=== PATIENT | male | born 1940 | race Caucasian/White ===

== ENCOUNTER 2019-05-08 09:18 | Day surgery (SDC) | payer MEDICARE ==
[~2019-05-08] VITALS: Ht 180.3 cm; Wt 83.8 kg
[~2019-05-08 09:18] MED LIST: HYDCHL12.5 PO; LISI20 PO
== END 2019-05-08 11:54 | disposition home or self-care (01) ==
LOC: ORSCSDS 09:18
PROVIDERS: Internal Medicine Gastroenterology
PROC: 0DBH8ZX Excision of Cecum, Via Natural or Artificial Opening Endoscopic, Diagnostic (ICD-10-PCS; principal; 2019-05-08 10:30)
PROC: 0DBL8ZX Excision of Transverse Colon, Via Natural or Artificial Opening Endoscopic, Diagnostic (ICD-10-PCS; principal; 2019-05-08 10:30)
DX: R19.4 Change in bowel habit (principal); D12.0 Benign neoplasm of cecum; D12.3 Benign neoplasm of transverse colon; K57.30 Diverticulosis of large intestine without perforation or abscess without bleeding; Z86.010 Personal history of colon polyps; I10 Essential (primary) hypertension; Z87.891 Personal history of nicotine dependence; Z79.899 Other long term (current) drug therapy
CPT/HCPCS: 88305; J2704; J7120

== ENCOUNTER 2020-10-06 14:11 | Emergency (ER) | payer MEDICARE ==
[~2020-10-06] VITALS: Ht 180.3 cm; Wt 86.2 kg
[2020-10-06 14:52] LABS: BASOPHILS ABSOLUTE AUTO 0.03 K/mm3 (0.00-0.23); BASOPHILS PERCENT AUTO 0 % (0-2); EOSINOPHILS ABSOLUTE AUTO 0.07 K/mm3 (0.00-0.68); EOSINOPHILS PERCENT AUTO 1 % (0-6); Hematocrit 45.6 % (37.0-53.0); Hemoglobin 15.3 g/dL (13.5-17.5); IMMATURE GRAN ABSOLUTE AUTO 0.01 K/mm3 (0.00-0.10); IMMATURE GRAN PERCENT AUTO 0 % (0-1); LYMPHOCYTES ABSOLUTE AUTO 1.89 K/mm3 (0.84-5.20); LYMPHOCYTES PERCENT AUTO 26 % (21-46); MONOCYTES ABSOLUTE AUTO 0.78 K/mm3 (0.16-1.47); MONOCYTES PERCENT AUTO 11 % (4-13); Mean Corpuscular HGB 30.3 pg (26.0-34.0); Mean Corpuscular HGB Conc 33.6 g/dL (31.5-36.5); Mean Corpuscular Volume 90 fL (80-100); Mean Platelet Volume 10.3 fL (9.1-12.4); NEUTROPHILS PERCENT AUTO 61 % (41-73); Platelet Count 222 K/mm3 (150-400); RDW Coefficient Variation 13.2 % (11.7-14.2); RDW Standard Deviation 44.1 fL (35.1-46.3); Red Blood Cell Count 5.05 M/mm3 (4.30-5.90); White Blood Cell Count 7.18 K/mm3 (4.00-11.30)
[2020-10-06] MEDS ORDERED: LISINOPRIL-HCT1 EACH PO (15:03)
[2020-10-06 15:05] LABS: International Normalized Ratio 1.04; Prothrombin Time Results 11.2 Sec (9.7-11.5)
[2020-10-06 15:08] LABS: Alanine Aminotransfer (ALT/SGP 26 U/L (12-78); Albumin, Blood 3.8 g/dL (3.4-5.0); Alk Phos 70 U/L (50-136); Anion Gap 5 mmol/L (6-16); Aspartate Aminotrans (AST/SGOT 19 U/L (12-37); Bilirubin, Total 0.5 mg/dL (0.1-1.0); Blood Urea Nitrogen 15 mg/dL (8-24); Bun/Creatinine Ratio 16.5 (12.0-20.0); CO2, Blood 27 mmol/L (21-32); Calcium, Blood 9.1 mg/dL (8.5-10.1); Chloride, Blood 104 mmol/L (98-108); Creatinine, Blood 0.91 mg/dL (0.60-1.20); Glomerular Filtration Rate >60 (60-); Glucose, Blood 97 mg/dL (70-99); Potassium, Blood 4.2 mmol/L (3.5-5.5); Sodium, Blood 136 mmol/L (136-145); Total Protein, Blood 7.8 g/dL (6.4-8.2)
[2020-10-06] MEDS ORDERED: CLOP75 PO (15:32)
== END 2020-10-06 15:40 | disposition home or self-care (01) ==
LOC: ER 14:11
PROVIDERS: Physician Assistant
DX: G45.9 Transient cerebral ischemic attack, unspecified (principal); I10 Essential (primary) hypertension; Z87.891 Personal history of nicotine dependence; Z88.0 Allergy status to penicillin; Z79.899 Other long term (current) drug therapy
CPT/HCPCS: 36415; 70450; 80053; 85025; 85610; 93005; 93010; 99285-25; A9270

== ENCOUNTER 2021-10-20 18:11 | Emergency (ER) | payer MEDICARE ==
[~2021-10-20] VITALS: Ht 180.3 cm; Wt 83.9 kg
[~2021-10-20 18:11] MED LIST changes: +CLOP75 PO; +LISINOPRIL-HCT1 EACH PO
[2021-10-20 18:50] LABS: BASOPHILS ABSOLUTE AUTO 0.02 K/mm3 (0.00-0.23); BASOPHILS PERCENT AUTO 0 % (0-2); EOSINOPHILS ABSOLUTE AUTO 0.07 K/mm3 (0.00-0.68); EOSINOPHILS PERCENT AUTO 1 % (0-6); Hematocrit 39.2 % (37.0-53.0); IMMATURE GRAN ABSOLUTE AUTO 0.01 K/mm3 (0.00-0.10); IMMATURE GRAN PERCENT AUTO 0 % (0-1); LYMPHOCYTES ABSOLUTE AUTO 1.82 K/mm3 (0.84-5.20); LYMPHOCYTES PERCENT AUTO 25 % (21-46); MONOCYTES ABSOLUTE AUTO 0.95 K/mm3 (0.16-1.47); MONOCYTES PERCENT AUTO 13 % (4-13); Mean Corpuscular HGB 30.1 pg (26.0-34.0); Mean Corpuscular HGB Conc 33.2 g/dL (31.5-36.5); Mean Corpuscular Volume 91 fL (80-100); Mean Platelet Volume 9.9 fL (9.1-12.4); NEUTROPHILS ABSOLUTE AUTO 4.56 K/mm3 (1.96-9.15); NEUTROPHILS PERCENT AUTO 61 % (41-73); Platelet Count 267 K/mm3 (150-400); RDW Coefficient Variation 13.1 % (11.7-14.2); RDW Standard Deviation 43.9 fL (35.1-46.3); Red Blood Cell Count 4.32 M/mm3 (4.30-5.90); White Blood Cell Count 7.43 K/mm3 (4.00-11.30)
[2021-10-20 19:13] LABS: Albumin, Blood 3.7 g/dL (3.4-5.0); Bilirubin, Total 0.4 mg/dL (0.1-1.0); Bun/Creatinine Ratio 18.7 (12.0-20.0); Calcium, Blood 9.1 mg/dL (8.5-10.1); Creatinine, Blood 1.07 mg/dL (0.60-1.20); Globulin, Blood 3.7 g/dL (2.2-4.0); Potassium, Blood 4.3 mmol/L (3.5-5.5); Total Protein, Blood 7.4 g/dL (6.4-8.2)
== END 2021-10-20 23:30 | disposition home or self-care (01) ==
LOC: ER 18:11
PROVIDERS: Emergency Medicine
DX: G45.9 Transient cerebral ischemic attack, unspecified (principal); I10 Essential (primary) hypertension; Z88.0 Allergy status to penicillin; Z79.899 Other long term (current) drug therapy; Z87.891 Personal history of nicotine dependence
CPT/HCPCS: 36415; 70450; 80053; 82947; 85025; 93005; 93010

== ENCOUNTER → 2022-04-14 | Outpatient (CLI) | payer MEDICARE ==
[2022-04-14 08:58] LABS: Source, Urine Clean Catch
[2022-04-14 10:13] LABS: Appearance, Urine Cloudy (Clear); Bilirubin, Urine Neg (Neg); Blood, Urine 5+ (Neg); Color, Urine Yellow (P-Yellow); Glucose Qualitative, Urine Neg (Neg); Ketones, Urine Neg (Neg); Leukocyte Esterase, Urine 3+ (Neg); Nitrite, Urine Pos (Neg); Protein, Urine 3+ (Neg); Urobilinogen, Urine NORM (Normal); pH, Urine 6.5 (5.0-8.0)
[2022-04-14 10:27] LABS: Bacteria Many /hpf; Squamous Epithelial Cells Not Seen /hpf (Few); White Blood Cells, Urine TNTC /hpf (0-5)
== END | disposition home or self-care (01) ==
LOC: LAB SHORT 08:57 → LAB 08:57
PROVIDERS: Internal Medicine
DX: R33.9 Retention of urine, unspecified (principal)
CPT/HCPCS: 81001; 87077; 87086; 87186

== ENCOUNTER 2022-04-23 06:09 | Emergency (ER) | payer MEDICARE ==
[~2022-04-23] VITALS: Ht 180.3 cm; Wt 79.4 kg
[2022-04-23 08:05] LABS: Source, Urine Foley catheter
[2022-04-23 08:15] LABS: Appearance, Urine Clear (Clear); Bilirubin, Urine Neg (Neg); Blood, Urine 5+ (Neg); Color, Urine Yellow (P-Yellow); Glucose Qualitative, Urine Neg (Neg); Ketones, Urine Neg (Neg); Leukocyte Esterase, Urine Neg (Neg); Nitrite, Urine Neg (Neg); Protein, Urine 3+ (Neg); Urobilinogen, Urine NORM (Normal)
[2022-04-23 08:55] LABS: Bacteria Rare /hpf; Squamous Epithelial Cells Not Seen /hpf (Few)
[2022-04-23 08:56] LABS: Hyaline Casts 0-2 /lpf (0-2)
== END 2022-04-23 09:30 | disposition home or self-care (01) ==
LOC: ER 06:09
PROVIDERS: Emergency Medicine
DX: N40.1 Benign prostatic hyperplasia with lower urinary tract symptoms (principal); N13.8 Other obstructive and reflux uropathy; R31.9 Hematuria, unspecified; N40.0 Benign prostatic hyperplasia without lower urinary tract symptoms; I10 Essential (primary) hypertension; Z87.891 Personal history of nicotine dependence; Z79.899 Other long term (current) drug therapy
CPT/HCPCS: 51702; 51798; 81001

== ENCOUNTER 2022-05-04 15:03 | Emergency (ER) | payer MEDICARE ==
[~2022-05-04] VITALS: Ht 180.3 cm; Wt 771.1 kg
[2022-05-04 17:44] LABS: Source, Urine Foley catheter
[2022-05-04 17:52] LABS: Appearance, Urine Clear (Clear); Bilirubin, Urine Neg (Neg); Blood, Urine Neg (Neg); Color, Urine Yellow (P-Yellow); Glucose Qualitative, Urine Neg (Neg); Ketones, Urine Neg (Neg); Leukocyte Esterase, Urine Neg (Neg); Nitrite, Urine Neg (Neg); Protein, Urine Neg (Neg); Urobilinogen, Urine NORM (Normal)
== END 2022-05-04 19:05 | disposition home or self-care (01) ==
LOC: ER 15:03
PROVIDERS: Student in an Organized Health Care Education/Training Program
DX: T83.021A Displacement of indwelling urethral catheter, initial encounter (principal); Y84.8 Other medical procedures as the cause of abnormal reaction of the patient, or of later complication, without mention of misadventure at the time of the procedure; I10 Essential (primary) hypertension; Z79.899 Other long term (current) drug therapy; Z88.0 Allergy status to penicillin; Z86.73 Personal history of transient ischemic attack (TIA), and cerebral infarction without residual deficits; Z87.891 Personal history of nicotine dependence
CPT/HCPCS: 51702; 51798; 81003

== ENCOUNTER → 2022-05-13 | Outpatient (CLI) | payer MEDICARE ==
[2022-05-13 11:08] LABS: Source, Urine Voided
[2022-05-13 13:13] LABS: Appearance, Urine Hazy (Clear); Bilirubin, Urine Neg (Neg); Blood, Urine 5+ (Neg); Color, Urine Yellow (P-Yellow); Glucose Qualitative, Urine Neg (Neg); Ketones, Urine Neg (Neg); Leukocyte Esterase, Urine 3+ (Neg); Nitrite, Urine Neg (Neg); Protein, Urine 3+ (Neg); Urobilinogen, Urine NORM (Normal)
[2022-05-13 13:27] LABS: White Blood Cells, Urine TNTC /hpf (0-5)
[2022-05-13 13:28] LABS: Bacteria Many /hpf
[2022-05-13 13:29] LABS: Granular Casts 0-2 /lpf (0); Squamous Epithelial Cells Not Seen /hpf (Few)
== END | disposition home or self-care (01) ==
LOC: LAB SHORT 11:07 → LAB 11:07
PROVIDERS: Internal Medicine
DX: R33.9 Retention of urine, unspecified (principal); R82.90 Unspecified abnormal findings in urine
CPT/HCPCS: 81001; 87077; 87086; 87186

== ENCOUNTER → 2022-07-28 | Outpatient (CLI) | payer OTHER ==
[~2022-07-28] MED LIST changes: +ATOR40TA PO; +ELIQUIS5 M2 PO; +FINA5 PO
== END ==
LOC: LAB 16:31 → LAB SHORT 16:31
DX: N40.0 Benign prostatic hyperplasia without lower urinary tract symptoms (principal)
CPT/HCPCS: 87077; 87086; 87186

== ENCOUNTER 2022-11-04 07:52 | Day surgery (SDC) | payer OTHER ==
[~2022-11-04] VITALS: Ht 180.3 cm; Wt 79.7 kg
--- NOTE | 2022-11-04 08:46 | NUR ---
11/04/22 0846 Mary Ace TETRICAIN PLACED IN LEFT EYE AT 0828. PLEGET FOAM PLACED IN LEFT EYE AT 0830 PT TOLERATED WELL. CALL LIGHT IN REACH.
[2022-11-04 09:41] VITALS: BP 114/74
== END 2022-11-04 10:01 | disposition home or self-care (01) ==
LOC: ORSCSDS 07:52
PROVIDERS: Ophthalmology
PROC: 08DK3ZZ Extraction of Left Lens, Percutaneous Approach (ICD-10-PCS; principal; 2022-11-04 09:00)
DX: H25.12 Age-related nuclear cataract, left eye (principal); I10 Essential (primary) hypertension; Z86.73 Personal history of transient ischemic attack (TIA), and cerebral infarction without residual deficits; I48.91 Unspecified atrial fibrillation; Z79.01 Long term (current) use of anticoagulants; Z79.899 Other long term (current) drug therapy
CPT/HCPCS: J2250; J3010; J3301; J7040; V2632

== ENCOUNTER 2022-11-05 20:33 | Inpatient (IN) | payer OTHER ==
[~2022-11-05] VITALS: Ht 180.3 cm; Wt 79.4 kg
[2022-11-05 21:01] LABS: BASOPHILS ABSOLUTE AUTO 0.03 K/mm3 (0.00-0.23); BASOPHILS PERCENT AUTO 0 % (0-2); EOSINOPHILS ABSOLUTE AUTO 0.02 K/mm3 (0.00-0.68); EOSINOPHILS PERCENT AUTO 0 % (0-6); Hematocrit 38.1 % (37.0-53.0); Hemoglobin 12.6 g/dL (13.5-17.5); IMMATURE GRAN ABSOLUTE AUTO 0.06 K/mm3 (0.00-0.10); IMMATURE GRAN PERCENT AUTO 0 % (0-1); LYMPHOCYTES ABSOLUTE AUTO 1.79 K/mm3 (0.84-5.20); LYMPHOCYTES PERCENT AUTO 11 % (21-46); MONOCYTES ABSOLUTE AUTO 1.81 K/mm3 (0.16-1.47); MONOCYTES PERCENT AUTO 11 % (4-13); Mean Corpuscular HGB 29.7 pg (26.0-34.0); Mean Corpuscular HGB Conc 33.1 g/dL (31.5-36.5); Mean Corpuscular Volume 90 fL (80-100); NEUTROPHILS ABSOLUTE AUTO 12.77 K/mm3 (1.96-9.15); NEUTROPHILS PERCENT AUTO 77 % (41-73); Platelet Count 226 K/mm3 (150-400); RDW Standard Deviation 46.2 fL (35.1-46.3); Red Blood Cell Count 4.24 M/mm3 (4.30-5.90); White Blood Cell Count 16.48 K/mm3 (4.00-11.30)
[2022-11-05 21:24] LABS: Alanine Aminotransfer (ALT/SGP 16 U/L (12-78); Albumin, Blood 3.3 g/dL (3.4-5.0); Albumin/Globulin Ratio 0.9 (0.8-1.8); Alk Phos 65 U/L (50-136); Anion Gap 5 mmol/L (6-16); Aspartate Aminotrans (AST/SGOT 16 U/L (12-37); Bilirubin, Total 0.8 mg/dL (0.1-1.0); Blood Urea Nitrogen 24 mg/dL (8-24); Bun/Creatinine Ratio 16.9 (12.0-20.0); CO2, Blood 26 mmol/L (21-32); Calcium, Blood 8.8 mg/dL (8.5-10.1); Chloride, Blood 100 mmol/L (98-108); Creatinine, Blood 1.42 mg/dL (0.60-1.20); Globulin, Blood 3.8 g/dL (2.2-4.0); Glomerular Filtration Rate 49 (60-); Glucose, Blood 133 mg/dL (70-99); Potassium, Blood 4.3 mmol/L (3.5-5.5); Sodium, Blood 131 mmol/L (136-145); Total Protein, Blood 7.1 g/dL (6.4-8.2)
[2022-11-05 21:51] LABS: Ethanol (Alcohol), Blood, Med <3 mg/dL
[2022-11-05 22:31] LABS: Source, Urine Clean Catch
[2022-11-05 22:35] LABS: Appearance, Urine Cloudy (Clear); Bilirubin, Urine Neg (Neg); Blood, Urine 5+ (Neg); Glucose Qualitative, Urine Neg (Neg); Ketones, Urine Neg (Neg); Leukocyte Esterase, Urine 3+ (Neg); Nitrite, Urine Neg (Neg); Protein, Urine 3+ (Neg); Urobilinogen, Urine NORM (Normal)
[2022-11-05 22:41] LABS: Color, Urine Pale Yellow (P-Yellow)
[2022-11-05 22:45] LABS: Bacteria Mod /hpf; Squamous Epithelial Cells Not Seen /hpf (Few); White Blood Cells, Urine TNTC /hpf (0-5)
[2022-11-06 02:12] VITALS: BP 128/90
--- NOTE | 2022-11-06 04:48 | NUR ---
SUMMARY: PATIENT ADMITTED OVERNIGHT. BEDSIDE SWALLOW EVAL DONE WITH NO ISSUES, DIET STARTED. PLAN FOR MRI TODAY. PATIENT AOX4. UNSTEADY ON FEET. BED ALARM ON. PATIENT VERY PLEASANT AND COOPERATIVE WITH ALL CARE. VOIDED IN URINAL THROUGHOUT NIGHT. MED REC COMPLETE. MONITORED ON TELE.
[2022-11-06 05:02] VITALS: BP 135/71
[2022-11-06 05:09] LABS: BASOPHILS ABSOLUTE AUTO 0.04 K/mm3 (0.00-0.23); BASOPHILS PERCENT AUTO 0 % (0-2); EOSINOPHILS ABSOLUTE AUTO 0.03 K/mm3 (0.00-0.68); EOSINOPHILS PERCENT AUTO 0 % (0-6); Hematocrit 37.7 % (37.0-53.0); Hemoglobin 12.5 g/dL (13.5-17.5); IMMATURE GRAN ABSOLUTE AUTO 0.07 K/mm3 (0.00-0.10); IMMATURE GRAN PERCENT AUTO 0 % (0-1); LYMPHOCYTES ABSOLUTE AUTO 2.23 K/mm3 (0.84-5.20); LYMPHOCYTES PERCENT AUTO 14 % (21-46); MONOCYTES ABSOLUTE AUTO 1.75 K/mm3 (0.16-1.47); MONOCYTES PERCENT AUTO 11 % (4-13); Mean Corpuscular HGB 29.4 pg (26.0-34.0); Mean Corpuscular HGB Conc 33.2 g/dL (31.5-36.5); Mean Corpuscular Volume 89 fL (80-100); Mean Platelet Volume 9.6 fL (9.1-12.4); NEUTROPHILS ABSOLUTE AUTO 11.64 K/mm3 (1.96-9.15); NEUTROPHILS PERCENT AUTO 74 % (41-73); Platelet Count 215 K/mm3 (150-400); RDW Standard Deviation 44.9 fL (35.1-46.3); Red Blood Cell Count 4.25 M/mm3 (4.30-5.90); White Blood Cell Count 15.76 K/mm3 (4.00-11.30)
[2022-11-06 05:31] LABS: Albumin, Blood 3.1 g/dL (3.4-5.0); Albumin/Globulin Ratio 0.8 (0.8-1.8); Bilirubin, Total 0.8 mg/dL (0.1-1.0); Bun/Creatinine Ratio 16.5 (12.0-20.0); Calcium, Blood 8.7 mg/dL (8.5-10.1); Creatinine, Blood 1.27 mg/dL (0.60-1.20); Globulin, Blood 4.1 g/dL (2.2-4.0); Potassium, Blood 3.9 mmol/L (3.5-5.5); Total Protein, Blood 7.2 g/dL (6.4-8.2)
[2022-11-06 06:41] LABS: Magnesium, Blood 2.1 mg/dL (1.6-2.4)
[2022-11-06 07:30] VITALS: BP 108/65
[2022-11-06] MEDS ORDERED: CEFD300 PO (15:19)
--- NOTE | 2022-11-06 16:25 | NUR ---
Patient admitted for TIA, no deficits noted this shift. Alert & oriented x4. Worked with therapy, pt independent. MRI done this morning. MD ordered pt to discharge home with PO ABX, reviewed discharge teaching. Pt left medical unit at 1530.
== END 2022-11-06 16:07 | disposition home or self-care (01) | DRG 689 ==
LOC: ER 20:33 → ERHOLD 11-06 01:18 → MEDS 11-06 01:18 → ENPENDDIS 11-06 14:41 → MEDS 11-06 16:07
PROVIDERS: Physician Assistant; ADMIT Student in an Organized Health Care Education/Training Program
DX: N39.0 Urinary tract infection, site not specified (principal); G93.41 Metabolic encephalopathy; I48.20 Chronic atrial fibrillation, unspecified; N40.1 Benign prostatic hyperplasia with lower urinary tract symptoms; R33.8 Other retention of urine; R26.0 Ataxic gait; I10 Essential (primary) hypertension; Z88.0 Allergy status to penicillin; Z86.73 Personal history of transient ischemic attack (TIA), and cerebral infarction without residual deficits; Z98.890 Other specified postprocedural states; Z96.659 Presence of unspecified artificial knee joint; Z98.49 Cataract extraction status, unspecified eye; Z87.891 Personal history of nicotine dependence; Z86.59 Personal history of other mental and behavioral disorders; Z79.01 Long term (current) use of anticoagulants; Z79.899 Other long term (current) drug therapy
CPT/HCPCS: 36415; 51798; 70450; 70551; 80053; 81001; 83735; 85025; 87077; 87086; 87186; 93005; 93010; 96365; 96375; 97112; 97161; 99285-25; A9270; G0480; J0696; J1956

== ENCOUNTER 2022-12-02 07:18 | Day surgery (SDC) | payer OTHER ==
[~2022-12-02] VITALS: Ht 180.3 cm; Wt 80.8 kg
[~2022-12-02 07:18] MED LIST changes: +CEFD300 PO
--- NOTE | 2022-12-02 07:57 | NUR ---
12/02/22 0757 Noemi Martin TETRACAINE TO THE R EYE AT 0747, PLEDGET PLACED IN THE R EYE AT 0748
[2022-12-02 08:54] VITALS: BP 130/73
--- NOTE | 2022-12-02 09:20 | NUR ---
12/02/22 0920 EDA BAJWA NOTED PT FORGETFUL AT TIMES. A BIT UNSTABLE WITH TRANSFERRING, WILL USE WC ON DISCHARGE. PT CURRENTLY ON HIS 3RD CUP OF CRANBERRY JUICE.
== END 2022-12-02 09:19 | disposition home or self-care (01) ==
LOC: ORSCSDS 07:18
PROVIDERS: Ophthalmology
PROC: 08DJ3ZZ Extraction of Right Lens, Percutaneous Approach (ICD-10-PCS; principal; 2022-12-02 08:30)
DX: H25.11 Age-related nuclear cataract, right eye (principal); Z96.1 Presence of intraocular lens; I10 Essential (primary) hypertension; Z86.73 Personal history of transient ischemic attack (TIA), and cerebral infarction without residual deficits; I48.91 Unspecified atrial fibrillation; Z79.01 Long term (current) use of anticoagulants; Z79.899 Other long term (current) drug therapy
CPT/HCPCS: J2250; J3010; J3301; J7040; V2632

== ENCOUNTER 2023-08-23 14:10 | Inpatient (IN) | payer OTHER ==
[~2023-08-23] VITALS: Ht 180.3 cm; Wt 73.5 kg
[2023-08-23 14:33] LABS: BASOPHILS ABSOLUTE AUTO 0.03 K/mm3 (0.00-0.23); BASOPHILS PERCENT AUTO 0 % (0-2); EOSINOPHILS ABSOLUTE AUTO 0.06 K/mm3 (0.00-0.68); EOSINOPHILS PERCENT AUTO 1 % (0-6); Hematocrit 36.7 % (37.0-53.0); Hemoglobin 12.2 g/dL (13.5-17.5); IMMATURE GRAN ABSOLUTE AUTO 0.12 K/mm3 (0.00-0.10); IMMATURE GRAN PERCENT AUTO 1 % (0-1); LYMPHOCYTES ABSOLUTE AUTO 1.54 K/mm3 (0.84-5.20); LYMPHOCYTES PERCENT AUTO 15 % (21-46); MONOCYTES ABSOLUTE AUTO 0.86 K/mm3 (0.16-1.47); MONOCYTES PERCENT AUTO 9 % (4-13); Mean Corpuscular HGB 29.9 pg (26.0-34.0); Mean Corpuscular HGB Conc 33.2 g/dL (31.5-36.5); Mean Corpuscular Volume 90 fL (80-100); Mean Platelet Volume 8.9 fL (9.1-12.4); NEUTROPHILS ABSOLUTE AUTO 7.45 K/mm3 (1.96-9.15); NEUTROPHILS PERCENT AUTO 74 % (41-73); Platelet Count 487 K/mm3 (150-400); RDW Coefficient Variation 13.7 % (11.7-14.2); RDW Standard Deviation 44.8 fL (35.1-46.3); Red Blood Cell Count 4.08 M/mm3 (4.30-5.90); White Blood Cell Count 10.06 K/mm3 (4.00-11.30)
[2023-08-23 14:55] LABS: Albumin/Globulin Ratio 0.6 (0.8-1.8); Bilirubin, Total 0.5 mg/dL (0.1-1.0); Bun/Creatinine Ratio 16.7 (12.0-20.0); Calcium, Blood 9.3 mg/dL (8.5-10.1); Creatinine, Blood 1.08 mg/dL (0.60-1.20); Globulin, Blood 4.7 g/dL (2.2-4.0); Potassium, Blood 4.6 mmol/L (3.5-5.5); Total Protein, Blood 7.7 g/dL (6.4-8.2)
[2023-08-23] MEDS ORDERED: Aspirin 325 MG Tab PO ONE (15:20)
[2023-08-23] MEDS ORDERED: CefTRIAXone Sodium 1,000 MG in NS 50 ML IV ONE (15:25)
[2023-08-23] MEDS ORDERED: NS 1,000 ML IV SCH (15:30)
[2023-08-23] MEDS ORDERED: Azithromycin 500 MG in NS 250 ML IV ONE (15:30)
[2023-08-23 15:51] LABS: Influenza A, PCR NEGATIVE (NEGATIVE); Influenza B, PCR NEGATIVE (NEGATIVE); Resp Syncytial Virus, PCR NEGATIVE (NEGATIVE); SARS-Cov-2 (COVID-19) PCR, MMC NEGATIVE (NEGATIVE)
[2023-08-23] MEDS ORDERED: FLU VACC QS2023-24(6MOS UP)/PF 60 MCG/0.5 ML SYRINGE IM ONE (18:00)
[2023-08-23] MEDS ORDERED: Aspirin 325 MG Tab PO SCH (18:15)
[2023-08-23] MEDS ORDERED: Furosemide 10 MG/ML 4ML Vial IV SCH (18:15)
[2023-08-23] MEDS ORDERED: Nitroglycerin 0.4 MG SUBL SL PRN (18:15)
--- NOTE | 2023-08-23 18:49 | NUR ---
ARRIVAL TO PCU: PT ARRIVED TO [facility] AT APPROX 1825 VIA RNEY. PT ABLE TO STAND & WALK FROM [facility] TO HOSPITAL BED W/ STAFF SBA. ALERT, ORIENTED X4. ABLE TO COMMUNICATE NEEDS W/ STAFF. VSS. HR 90'S, SINUS ON TELE. BP STABLE, MAP >65. DENIES CHEST PAIN/PRESSURE AT THIS TIME, STATES CHEST PAIN IMPROVED APPROX 4 DAYS AGO. SPO2 >90% ON RA. PT'S SPOUSE AT BEDSIDE. PT EATING DINNER AT THIS TIME. ORIENTED PT TO ROOM/UNIT/CALL LIGHT. SMOKING/IGNITION RISK ASSESSED; PT IS NON-SMOKER, NO LIGHTERS/IGNITION SOURCES PRESENT ON ADMISSION. NO OTHER NEEDS AT THIS TIME, CALL LIGHT IN REACH.
[2023-08-23] MEDS ORDERED: Dose Adjust by Pharmacy XX STA (18:59)
[2023-08-23] MEDS ORDERED: Heparin Sodium,Porcine/0.5 NS 500 ML IV SCH (19:00)
[2023-08-23] MEDS ORDERED: Heparin Sodium 5000 Units/ML 1ML MDV IV ONE (19:00)
[2023-08-23 19:19] LABS: International Normalized Ratio 1.2; Prothrombin Time Results 12.5 Sec (9.7-11.5)
[2023-08-23] MEDS ORDERED: WIXELA 250-501 EAC1 INH (19:45)
[2023-08-23] MEDS ORDERED: ALBU90OI INH (19:47)
[2023-08-23] MEDS ORDERED: 1/2 NS 250ml250 ML (19:48)
[2023-08-23 20:09] VITALS: BP 108/74
[2023-08-23] MEDS ORDERED: Metoprolol Tartrate 25 MG Tab PO SCH (21:00)
[2023-08-23] MEDS ORDERED: Atorvastatin 40 MG Tab PO SCH (21:00)
[2023-08-24] VITALS (8 sets, daily range): BP systolic 94–119; BP diastolic 64–86
[2023-08-24 02:42] LABS: Hemoglobin 11.1 g/dL (13.5-17.5); Mean Corpuscular HGB 30.2 pg (26.0-34.0); Mean Corpuscular HGB Conc 33.6 g/dL (31.5-36.5); Mean Corpuscular Volume 90 fL (80-100); Mean Platelet Volume 9.2 fL (9.1-12.4); Platelet Count 466 K/mm3 (150-400); RDW Coefficient Variation 13.9 % (11.7-14.2); RDW Standard Deviation 45.1 fL (35.1-46.3); Red Blood Cell Count 3.67 M/mm3 (4.30-5.90); White Blood Cell Count 8.91 K/mm3 (4.00-11.30)
[2023-08-24 02:45] LABS: Anion Gap 8 mmol/L (3-11); Blood Urea Nitrogen 22 mg/dL (8-24); Bun/Creatinine Ratio 16.9 (12.0-20.0); CHOL/HDL RATIO 2.3; CO2, Blood 28 mmol/L (21-32); Calcium, Blood 8.6 mg/dL (8.5-10.1); Chloride, Blood 106 mmol/L (98-108); Cholesterol 101 mg/dL (50-200); Glomerular Filtration Rate 54 (60-); Glucose, Blood 104 mg/dL (70-99); HDL Cholesterol 44 mg/dL (>39); LDL/HDL RATIO 1.1; Low Density Lipoprotein Chol 50 mg/dL (0-110); Potassium, Blood 4.3 mmol/L (3.5-5.5); Sodium, Blood 138 mmol/L (136-145); Triglycerides 36 mg/dL (30-160); Very Low Density Lipoprot Chol 7 mg/dL (6-32)
[2023-08-24] MEDS ORDERED: Clarify Drug Order XX ONE (03:20)
--- NOTE | 2023-08-24 06:27 | NUR ---
SHIFT SUMMARY PT A&Ox4, CALLS AND COMMUNCIATES NEEDS APPROPRIATELY. SBA FOR IV POLE MANAGEMENT. BP STABLE, SINUS 80's, DENIES CP/PRESSURE. SpO2> 92% RA, DENIES SOB. NPO AT 0000. CONTINENT OF URINE AND BOWEL. HEPARIN gtt INFUSING AT 15units/hr PER PHARMACY. NO OTHER EVENTS, WILL REPORT TO ONCOMING RN.
[2023-08-24] MEDS ORDERED: Dose Adjust by Pharmacy XX STA ×2 (08:28→14:21)
--- NOTE | 2023-08-24 11:22 | NUR ---
DR. PISANO AND DR. MARTE BY TO SEE PATIENT. THIS RN AT BEDSIDE FOR PROVIDER ROUNDING WELL AND OTHER FAMILY MEMEBERS. PLAN FOR ECHO, ORDERS IN PLACE AND ECHO AT BEDSIDE AT THIS TIME. ORDERS FOR BABY ASPIRIN 81MG PO DAILY WELL LIPITOR 40MG PO DAILY. ORDERS IN PLACE. PATIENT ABLE TO EAT, PLAN FOR NPO AT MIDNIGHT. 325MG PO ASPIRIN DISCONTINUED.
--- NOTE | 2023-08-24 18:26 | NUR ---
SHIFT SUMMARY: NO ACUTE CHANGES. PATIENT CONTINUES TO DENY CHEST PAIN/PRESSURE/PALPITATIONS. HEPARIN GTT CONTINUES TO INFUSE. ECHO COMPLETED THIS SHIFT. PLAN FOR NPO AT MIDNIGHT FOR POSSIBLE CARDIAC INTERVENTION VS STRESS TEST ON 08/24. AT BEDSIDE THROUGHOUT SHIFT. UP TO BATHROOM OR WALKING AROUND UNIT WITH SBA. TOLERATING DIET AT THIS TIME. INTERMIT DRY COUGH REMAINS ON ROOM AIR. USING URINAL TO VOID. DENIES NEEDS AT THIS TIME. CALL LIGHT IN REACH.
[2023-08-24] MEDS ORDERED: Atorvastatin 40 MG Tab PO SCH (21:00)
[2023-08-25] VITALS (12 sets, daily range): BP systolic 93–125; BP diastolic 66–81
[2023-08-25 03:25] LABS: Hematocrit 34.1 % (37.0-53.0); Hemoglobin 11.5 g/dL (13.5-17.5); Mean Corpuscular HGB 29.8 pg (26.0-34.0); Mean Corpuscular HGB Conc 33.7 g/dL (31.5-36.5); Mean Corpuscular Volume 88 fL (80-100); Mean Platelet Volume 8.8 fL (9.1-12.4); Platelet Count 455 K/mm3 (150-400); RDW Coefficient Variation 13.9 % (11.7-14.2); RDW Standard Deviation 44.8 fL (35.1-46.3); Red Blood Cell Count 3.86 M/mm3 (4.30-5.90); White Blood Cell Count 8.89 K/mm3 (4.00-11.30)
[2023-08-25 03:43] LABS: Albumin, Blood 2.8 g/dL (3.4-5.0); Albumin/Globulin Ratio 0.7 (0.8-1.8); Bilirubin, Total 0.3 mg/dL (0.1-1.0); Bun/Creatinine Ratio 16.7 (12.0-20.0); Calcium, Blood 8.9 mg/dL (8.5-10.1); Creatinine, Blood 1.2 mg/dL (0.60-1.20); Globulin, Blood 3.9 g/dL (2.2-4.0); Magnesium, Blood 2.2 mg/dL (1.6-2.4); Phosphorus, Blood 3.6 mg/dL (2.5-4.9); Potassium, Blood 3.8 mmol/L (3.5-5.5); Total Protein, Blood 6.7 g/dL (6.4-8.2)
[2023-08-25] MEDS ORDERED: Dose Adjust by Pharmacy XX STA ×2 (03:58→20:26)
[2023-08-25] MEDS ORDERED: CefTRIAXone Sodium 2,000 MG in NS 100 ML IV SCH (04:00)
--- NOTE | 2023-08-25 06:30 | NUR ---
SHIFT SUMMARY PT A&Ox4, CALLS AND COMMUNCIATES NEEDS APPROPRIATELY. SBA FOR IV POLE MANAGEMENT. BP STABLE, SINUS 80's, DENIES CP/PRESSURE. SpO2> 92% RA, DENIES SOB. NPO AT 0000. CONTINENT OF URINE AND BOWEL. HEPARIN gtt INFUSING AT 18units/hr PER PHARMACY. NO OTHER EVENTS, WILL REPORT TO ONCOMING RN.
[2023-08-25] MEDS ORDERED: NS 250 ML IV ONE (07:20)
[2023-08-25] MEDS ORDERED: NS 1,000 ML IV ONE ×2 (07:20→08:29)
[2023-08-25] MEDS ORDERED: Heparin Sodium 1000 Units/ML 10ML MDV ONE (07:20)
[2023-08-25] MEDS ORDERED: Nitroglycerin 2 MG/20 ML BTL ONE (07:21)
[2023-08-25] MEDS ORDERED: NiCARdipine HCL 1,000 MCG/5 ML SYR ONE (07:21)
[2023-08-25] MEDS ORDERED: FentaNYL Citrate 50 MCG/ML 2 ML Injection ONE (08:29)
[2023-08-25] MEDS ORDERED: Midazolam HCl 1MG / ML 2ML Vial ONE (08:29)
[2023-08-25] MEDS ORDERED: Aspirin 81 MG Chew ONE (08:59)
[2023-08-25] MEDS ORDERED: Aspirin 81 MG Chew PO SCH (09:00)
--- NOTE | 2023-08-25 19:26 | NUR ---
PT SUMMARY; PT HAD ANGIOGRAM THIS MORNING RIGHT RADIAL SITE TR BAND FULLY RECOVERED, PT HAD MULTIVESSEL DSE FOR COBRA TRANSFER TO [place], AWAITING FOR BED, HEP GTT RRESTARTED AT 18U/KG/HR. FAMILY AT BEDSIDE ABLE TO HAVE DISCUSSION WITH DR MARTE ABOUT THE PLAN. VITALS HRR SR 70-90'S, SBO 90-120'S, SATS ABOVE 95% ON RA, AFEBRILE. PT CONTINUES TO DIURESE URINATING IN THE BATHROOM IN THE URINAL WIHT INCREASE IN OUTPUT. AMBULATING VIA SBA, ABLE TO AMBULATE AROUND THE UNIT WIHT NO ISSUES. PT DENIES CHEST PAIN/PRESSURE T/O SHIFT, NO N/V/D. PT WITH GREAT APPETITE. NO OTHER ISSUES REPORTED FOR THE SHIFT, WILL REPORT TO JAGDISH MOTT
[2023-08-26] VITALS (7 sets, daily range): BP systolic 103–125; BP diastolic 66–90
[2023-08-26 03:01] LABS: Bun/Creatinine Ratio 17.5 (12.0-20.0); Calcium, Blood 9.1 mg/dL (8.5-10.1); Creatinine, Blood 1.2 mg/dL (0.60-1.20); Potassium, Blood 3.6 mmol/L (3.5-5.5)
[2023-08-26] MEDS ORDERED: Clarify Drug Order XX ONE (03:50)
--- NOTE | 2023-08-26 05:43 | NUR ---
SHIFT SUMMERY PT HAS BEEN ALERT AND ORIENTED X4, VERY PLEASANT DISPOSITION. HE HAS HAD NO COMPLAINTS OF CHEST PAIN OR PRESSURE OVERNIGHT NOR ANY COMPLAINTS OF N/V. PT VS HAVE BEEN STABLE, HE HAS BEEN AFEBRILE. HE IS ON ROOM AIR W/OXYGEN SAT >95%.
[2023-08-26] MEDS ORDERED: OMEP20ER PO (08:50)
[2023-08-26] MEDS ORDERED: Fibercon625 MG PO (08:51)
[2023-08-26 09:13] LABS: Hematocrit 39.3 % (37.0-53.0); Hemoglobin 13.1 g/dL (13.5-17.5); Mean Platelet Volume 8.8 fL (9.1-12.4); Platelet Count 504 K/mm3 (150-400)
[2023-08-26] MEDS ORDERED: Dose Adjust by Pharmacy XX STA ×2 (09:50→16:35)
[2023-08-26] MEDS ORDERED: Misc. Inhaler INH SCH (11:15)
[2023-08-26] MEDS ORDERED: Albuterol HFA200 ACT/6.7 GM INH INH PRN (11:30)
[2023-08-26 15:30] LABS: PT, INHIBITOR SCREEN 17.7 sec (12.0-15.5)
--- NOTE | 2023-08-26 17:55 | NUR ---
PT SUMMARY; NO ACUTE CHANGE FOR THE SHIFT, PT STILL WAITING FOR A BED FOR COBRA TRANSFER. VITALS HAS BEEN STABLE, DENIES CHEST PAIN/PRESSURE NO NAUSEA VOMITING REPORTED. WAS IN THE ROOM MOST OG THE SHIFT. HEP GTT RUNNING AT 18U/KG/HR. PT HAS BEEN AMBULATORY TO THE BATHROOM WIHT NO ISSUES. ABLE TO WALK AROUND THE UNIT WITH THE . PT HAVING COUGHING SPITS WITH MEALS STATED ITS PT'S BASELINE AND SOME OF HIS HOME MEDS HELPS WITH THE COUGH WHICH WAS RESTARTED AND SO INHALERS. PT HAS BEEN CALLING APPROPRIATELY, PT CURRENTLY FINISHING UP DINNER CALL LIGHTS IN REACH WILL REPORT TO ONCOMING SHIFT
[2023-08-26] MEDS ORDERED: Calcium Polycarbophil 625 MG Tab PO SCH ×2 (21:00)
[2023-08-26] MEDS ORDERED: WIXELA INH SCH (21:00)
[2023-08-27] VITALS (9 sets, daily range): BP systolic 106–122; BP diastolic 71–93
--- NOTE | 2023-08-27 05:44 | NUR ---
SHIFT SUMMARY NO ACUTE CHANGES DURING NOC. SLEPT WHEN UNDISTURBED. UP TO BATHROOM AND AMBULATING IN ROOM WITHOUT DIFFICULTY. VOIDING CLEAR YELLOW URINE. DENIED C/O CHEST PAIN OR OTHER DISCOMFORT T/O SHIFT. CONTINUES WITH OCCASIONAL COUGH. HEPARIN INFUSING PER PHARMACY ORDER AT 18UNITS/KG/HR. VSS. NSR. RA SATS STABLE. AFEBRILE. WILL REPORT TO ONCOMING RN WHEN AVAILABLE.
[2023-08-27] MEDS ORDERED: Omeprazole 20 MG CapCR PO SCH (06:00)
[2023-08-27] MEDS ORDERED: Clarify Drug Order XX ONE (07:50)
--- NOTE | 2023-08-27 20:13 | NUR ---
EOS: PATIENT HAS BEEN ALERT AND ORIENTED IND/SBA. HAS HAD A BED BATH. HEPARIN IS INFUSING UNCHANGED FROM START OF SHIFT. PATIENT COOPERATIVE AND ALERT AND ORIENTED X 4. AND MULTIPLE FAMILY THROUGHOUT THE DAY. PATIETN VSS NO SIGNS OF CHEST PAIN, PATIETN DENES CHEST PAIN PRESSURE OR SOB. SPOT SPO2 CHECKS O2 >94% ON RA. PATIENT WITH IMPROVING APPETITE, INCREASED EXERTIONAL WALKING. >60MINUTES OF EDCUATION. BED BATH TODAY BY THIS RN. PATIENTHR UPPER 70'S TO LOW 90'S. 120'S WITH EXERTION. NO ACUTE CONCERNS, NO SIGNIFICANT PLAN FOR BED AT THIS TIME, POTENTIALLY THIS EVENING. PATIENT WITH MODERATE URINE OUTPUT. ENDORSES 750 IN THE AM. MULTIPLE UNMEASURED VOIDS. NO ACUTE CONCERNS FROM THIS RN AT THIS TIME
[2023-08-28] VITALS (7 sets, daily range): BP systolic 105–118; BP diastolic 70–83
[2023-08-28 04:35] LABS: Hemoglobin 13.1 g/dL (13.5-17.5); Mean Corpuscular HGB 29.8 pg (26.0-34.0); Mean Corpuscular HGB Conc 33.6 g/dL (31.5-36.5); Mean Corpuscular Volume 89 fL (80-100); Mean Platelet Volume 8.9 fL (9.1-12.4); Platelet Count 448 K/mm3 (150-400); RDW Coefficient Variation 13.8 % (11.7-14.2); RDW Standard Deviation 44.7 fL (35.1-46.3); Red Blood Cell Count 4.39 M/mm3 (4.30-5.90); White Blood Cell Count 7.44 K/mm3 (4.00-11.30)
[2023-08-28 04:53] LABS: Bun/Creatinine Ratio 18.9 (12.0-20.0); Calcium, Blood 9.1 mg/dL (8.5-10.1); Creatinine, Blood 1.22 mg/dL (0.60-1.20); Potassium, Blood 3.6 mmol/L (3.5-5.5)
--- NOTE | 2023-08-28 05:05 | NUR ---
END OF SHIFT NOTE: PT A/OX4, USES CALL LIGHT APPROPRIATELY TO MAKE NEEDS KNOWN. PT AMBULATED THE UNIT WITH WITH STEADY GAIT. HE IS CONTINENT AND USES THE BATHROOM IND. HIS SPO2 >90% ON RA, DENIES SOB. HE IS ON TELE IN NSR WITH STABLE PRESSURES, DENIES CHEST PAIN/PRESSURE. HIS R RADIAL SITE IS NONTENDER, WITH NO REDNESS OR SWELLING, DISTAL PULSES PRESENT. HEPARIN HAS BEEN INFUSING PER EMAR T/0 SHIFT. WILL CONTINUE TO MONITOR AND REPORT TO ONCOMING RN
[2023-08-28] MEDS ORDERED: Dose Adjust by Pharmacy XX STA (05:26)
--- NOTE | 2023-08-28 06:35 | NUR ---
HEPARIN STOPPED [id number]. RESTARTED AT 0630 AT TITRATED RATE PER EMAR
--- NOTE | 2023-08-28 11:31 | NUR ---
ASUMPTION OF CARE NOTE: ASSUMED CARE OF PT AT 0700. REPORT FROM GRAIN BROKER AND MARKET OPERATOR RNMAGDALENA. UPON ASSESSMENT, PT RESTING IN BED AXO X 4. PT FRIENDLY AND COOPERTIVE WITH AM VITALS AND MED ADMINSTRATION. PT HAS NORMAL SR AT 84BPM. LUNG SOUNDS CLEAR THROUGHOUT. OCCASIONAL DRY COUGH NOTED. BOWEL SOUNDS ACTIVE. SLIGHT WEAKNESS WITH AMBULATION. HEPARIN DRIP RUNNING AT 16. IVS PATENT. PT IS AWAITING TRANSFER UP [place] FOR [facility]G. PLAN FOR TRANSFER HOPEFULLY TODAY. PT VSS. PROVIDED WITH CALL LIGHT.
[2023-08-28] MEDS ORDERED: Clarify Drug Order XX ONE (13:35)
--- NOTE | 2023-08-28 18:07 | NUR ---
PCU DAY SHIFT SUMMARY: ASSUMED CARE OF PT AT 0700. PT WAS HOPING FOR POSSIBLE TRANSFER TO [place] THIS AFTERNOON FOR CONTINUATION OF CARE HOWEVER, NO UPDATE HAS BEEN GIVEN. PT HAD NO CHANGES IN STATUS THROUGHTOUT THE DAY. PT REMAINS ON 16U HEPAIN DRIP AFTER A APTT WAS REDRAWN AT 1200 TODAY. DENIED ANY CHEST PAIN OR SOB TODAY. PT AMBULATED AROUND UNIT WITH ASSISTANCE OF FAMILY. PERFORMED ALL ADLS INDEPENDENTLY. CONDITION REMAINS STABLE AND PT AWAITING PLAN FOR TRASNFER TO [place]. AT BEDSIDE.
[2023-08-29] MEDS ORDERED: Dose Adjust by Pharmacy XX STA (01:49)
[2023-08-29 03:36] VITALS: BP 102/71
--- NOTE | 2023-08-29 04:33 | NUR ---
END OF SHIFT NOTE: PT A/OX4 AND IND IN ROOM. HE PERFORMS ALL ADLS IND AND CALLS APPRORPIATELY. HIS VITAL SIGNS REMAIN STABLE, HE DENIES CHEST PAIN/PRESSURE AND SOB. HIS HEPARIN DOSE WAS DECREASED-SEE EMAR. PT STILL WAITING FOR COBRA TRANSFER AND DESIRES TO SPEAK WITH DOC IN AM ABOUT THE PLAN FROM HERE. PT HAS BEEN SLEEPING T/O SHIFT AND DENIES NEEDS WHEN ASSESSED. WILL CONTINUE TO MONITOR AND REPORT TO ONCOMING RN
[2023-08-29 08:20] VITALS: BP 116/69
[2023-08-29] MEDS ORDERED: Clarify Drug Order XX ONE (10:15)
[2023-08-29 12:18] VITALS: BP 106/79
[2023-08-29 15:49] VITALS: BP 107/81
--- NOTE | 2023-08-29 18:13 | NUR ---
SHIFT SUMMARY; ASSUMED CARE AT 0700. A/A/OX4, INDEPENDANT IN ROOM, WALKS HALLWAY WITH WIRE WELDER, DENIES CP OR SOB. HEPARIN GTT AT 15UNIT/KG PER EMAR. SPOUSE AT BEDSIDE DURING SHIFT. UPDATE TODAY BY BEHAVIORAL HEALTH WORKER FOR PLAN FOR ANGIO TOMORROW, TO BE NPO AFTER MIDNIGHT. PLEASANT AND COOPERATIVE WITH CARE, NO ACUTE MEDICAL CHANGES, WILL CONTINUE TO MONITOR AND TREAT UNTIL CHANGE OF SHIFT.
[2023-08-29 20:27] VITALS: BP 101/71
[2023-08-29 23:49] VITALS: BP 94/68
[2023-08-30] VITALS (11 sets, daily range): BP systolic 99–121; BP diastolic 66–96
--- NOTE | 2023-08-30 03:17 | NUR ---
END OF SHIFT NOTE: PT PLEASANT AND COOPERATIVE WITH CARE. HE HAS BEEN NPO SINCE MIDNIGHT FOR ANGIO TODAY. SPO2 >90% ON RA, VSS, DENIES CHEST PAIN/PRESSURE AND SOB. HEPARIN HAS BEEN RUNNING T/O SHIFT PER EMAR. PT IND IN ROOM AND PERFORMS ALL ADLS IND. WILL CONTINUE TO MONITOR AND REPORT TO ONCOMING RN.
[2023-08-30] MEDS ORDERED: Dose Adjust by Pharmacy XX STA (06:00)
[2023-08-30] MEDS ORDERED: Clopidogrel Bisulfate 75 MG Tab PO ONE ×2 (07:00→07:40)
[2023-08-30] MEDS ORDERED: Nitroglycerin 2 MG/20 ML BTL ONE (08:58)
[2023-08-30] MEDS ORDERED: NS 1,000 ML IV ONE ×2 (08:58→09:54)
[2023-08-30] MEDS ORDERED: NiCARdipine HCL 1,000 MCG/5 ML SYR ONE (08:58)
[2023-08-30] MEDS ORDERED: Heparin Sodium 1000 Units/ML 10ML MDV ONE (08:58)
[2023-08-30] MEDS ORDERED: NS 250 ML IV ONE (08:58)
[2023-08-30] MEDS ORDERED: FentaNYL Citrate 50 MCG/ML 2 ML Injection ONE (09:54)
[2023-08-30] MEDS ORDERED: Midazolam HCl 1MG / ML 2ML Vial ONE (09:54)
[2023-08-30] MEDS ORDERED: Phenylephrine HCl 100 MCG/ML-NS 10MLSYR (1MG/10ML) ONE (10:08)
[2023-08-30] MEDS ORDERED: Atropine Sulfate 0.1 MG/ML 10ML SYR ONE (10:15)
[2023-08-30] MEDS ORDERED: Heparin Sodium,Porcine/0.5 NS 500 ML IV SCH (12:30)
--- NOTE | 2023-08-30 18:28 | NUR ---
SHIFT SUMMARY; ASSUMED CARE AT 0700. A/A/OX4. ANGIO TODAY WITH RIGHT RADIAL SITE. TR BAND RECOVERED PER ORDERS. CAP REFILL <3, RADIAL PULSE PALPABLE. BAND REMOVED TEGADERM PLACED, NO BLEEDING, SWELLING OR HEMATOMA. VSWINIFRED Yeung DC'Brain BY DR. KESSLER AFTER DISCUSSING ON PHONE. AMBULATES IN ROOM, USES URINAL AT BEDSIDE, NO DISTRESS DURING SHIFT. NPO TONIGHT AFTER MIDNIGHT FOR ANGIO/STENT TOMORROW. WILL CONTINUE TO MONITOR AND TREAT UNTIL CHANGE OF SHIFT.
[2023-08-31] VITALS (7 sets, daily range): BP systolic 104–119; BP diastolic 69–80
[2023-08-31] MEDS ORDERED: Dose Adjust by Pharmacy XX STA ×4 (00:48→21:04)
[2023-08-31] MEDS ORDERED: Pantoprazole Sodium 40 MG Tab PO SCH (06:00)
--- NOTE | 2023-08-31 06:21 | NUR ---
SHIFT SUMMARY ASSUMPTION OF CARE OF THIS PATIENT AT 0030 FROM HAKAN LEIJA. PT RESTING COMFORTABLY OVERNIGHT WITH HEPARIN GTT INFUSING ORDERED. NPO SINCE MIDNIGHT. WRIST SITE IS APPROPRIATE WITH NO OOZING OR INDURATIONS. PT ABLE TO TURN SELF DESIRED.
[2023-08-31 07:12] LABS: Hematocrit 41.6 % (37.0-53.0); Hemoglobin 13.9 g/dL (13.5-17.5); Mean Corpuscular HGB 29.6 pg (26.0-34.0); Mean Corpuscular HGB Conc 33.4 g/dL (31.5-36.5); Mean Corpuscular Volume 89 fL (80-100); Mean Platelet Volume 8.9 fL (9.1-12.4); Platelet Count 395 K/mm3 (150-400); RDW Coefficient Variation 13.9 % (11.7-14.2); RDW Standard Deviation 45.4 fL (35.1-46.3); White Blood Cell Count 11.23 K/mm3 (4.00-11.30)
[2023-08-31 07:28] LABS: Albumin, Blood 3.4 g/dL (3.4-5.0); Anion Gap 10 mmol/L (3-11); Blood Urea Nitrogen 31 mg/dL (8-24); Bun/Creatinine Ratio 24.4 (12.0-20.0); CO2, Blood 26 mmol/L (21-32); Calcium, Blood 9.5 mg/dL (8.5-10.1); Chloride, Blood 105 mmol/L (98-108); Creatinine, Blood 1.27 mg/dL (0.60-1.20); Glomerular Filtration Rate 56 (60-); Glucose, Blood 107 mg/dL (70-99); Phosphorus, Blood 3.6 mg/dL (2.5-4.9); Potassium, Blood 3.9 mmol/L (3.5-5.5); Sodium, Blood 137 mmol/L (136-145)
[2023-08-31] MEDS ORDERED: Clopidogrel Bisulfate 75 MG Tab PO SCH (09:00)
[2023-08-31] MEDS ORDERED: NS 1,000 ML IV SCH (15:55)
--- NOTE | 2023-08-31 18:31 | NUR ---
SHIFT SUMMARY; ASSUMED CARE AT 0700. PLEASANT AND COOPERATIVE WITH CARE. RIGHT RADIAL SITE FROM PREVIOUS SHIFT WITH TEGADERM. NO HEMATOMA, SWELLING OR BLEEDING. HEPARIN GTT AT 13UNITS/KG. AMBULATORY IN ROOM AND HALLWAY, SHOWER TODAY. PLAN FOR NPO AFTER MIDNIGHT FOR ANGIO TOMORROW. WILL CONTINUE TO MONITOR AND TREAT UNTIL CHANGE OF SHIFT.
[2023-09-01] VITALS (13 sets, daily range): BP systolic 99–120; BP diastolic 64–85
[2023-09-01 03:24] LABS: Hematocrit 38.7 % (37.0-53.0); Hemoglobin 12.7 g/dL (13.5-17.5); Mean Platelet Volume 9.5 fL (9.1-12.4); Platelet Count 362 K/mm3 (150-400)
[2023-09-01 03:40] LABS: Bun/Creatinine Ratio 24.4 (12.0-20.0); Calcium, Blood 8.9 mg/dL (8.5-10.1); Creatinine, Blood 1.19 mg/dL (0.60-1.20); Potassium, Blood 4.2 mmol/L (3.5-5.5)
[2023-09-01] MEDS ORDERED: Dose Adjust by Pharmacy XX STA (05:14)
--- NOTE | 2023-09-01 06:07 | NUR ---
Pt slept well this shift, denies pain. at bedisde at start of shift, discussed plan of care and educated regarding medications including Heparin IV and IV fluid bolus. Questions answered, both pt and exhibit understanding. Please see full assessment for further details. No additional complaints or concerns at this time, will continue to monitor. NPO since 2400.
[2023-09-01] MEDS ORDERED: NS 1,000 ML IV ONE ×2 (11:35→13:43)
[2023-09-01] MEDS ORDERED: Midazolam HCl 1MG / ML 2ML Vial ONE (11:42)
[2023-09-01] MEDS ORDERED: FentaNYL Citrate 50 MCG/ML 2 ML Injection ONE (11:42)
[2023-09-01] MEDS ORDERED: Heparin Sodium 1000 Units/ML 10ML MDV ONE ×2 (12:11→13:43)
--- NOTE | 2023-09-01 13:24 | NUR ---
Pt returned from the cathlab; Gisella is at the bedside, voicing concerns about the pt's pain in his right wrist. Pt states he does not want anything for his wrist pain. Visualized the TR band site. No bleeding, no bruising, no swelling noted. Spo2 96% measured on the 2nd digit. Palpable distal pulse, cap refill 4 seconds. Removed 1 cc air from the TR band and pt states some relief.Vital signs are stable, Sinus rhythm 65 bpm noted by telemetry.
[2023-09-01] MEDS ORDERED: Nitroglycerin 2 MG/20 ML BTL ONE (13:43)
[2023-09-01] MEDS ORDERED: NiCARdipine HCL 1,000 MCG/5 ML SYR ONE (13:43)
[2023-09-01] MEDS ORDERED: NS 250 ML IV ONE (13:43)
--- NOTE | 2023-09-01 13:55 | NUR ---
Dr. Solomon here, rounding on pt. Vital signs are stable.
--- NOTE | 2023-09-01 15:07 | NUR ---
3 cc air removed from the band. Site remains WNL. Pt is resting quietly, denies pain/discomfort.
--- NOTE | 2023-09-01 15:29 | NUR ---
TR band fully deflated at this time. Some bruising noted beneath the TR band, but no bleeding, no hematoma, no swelling and pt denies any pain/discomfort at the site. Will remove the TR band completely in 1 hour, and restart heparin gtt at that time.
--- NOTE | 2023-09-01 16:43 | NUR ---
TR band removed.
[2023-09-01] MEDS ORDERED: Losartan Potassium 25 MG Tab PO SCH ×2 (18:00→21:00)
[2023-09-02] MEDS ORDERED: Dose Adjust by Pharmacy XX STA (00:13)
[2023-09-02 04:06] VITALS: BP 101/64
--- NOTE | 2023-09-02 06:08 | NUR ---
Assumed care of patient at 1900, full report obtained from shift prior. Pt appeared to sleep well this shift, repeatedly denying pain. Heparin gtt continues, dosing per pharmacy. Please see full assessment for further details. No additional complaints or concerns at this time, will continue to monitor.
--- NOTE | 2023-09-02 07:14 | NUR ---
Pt awakened at time of bedside report given by HELADIO Brown. The pt took his prilosec and was able to talk with us. He has no complaints nor needs at that time. Heparin gtt infusing at 11 u/kg/hour. Next anti-Xa scheduled for 729.
[2023-09-02 07:58] VITALS: BP 117/84
[2023-09-02 09:00] LABS: Bun/Creatinine Ratio 21.1 (12.0-20.0); Calcium, Blood 9.6 mg/dL (8.5-10.1); Creatinine, Blood 1.23 mg/dL (0.60-1.20); Potassium, Blood 4.3 mmol/L (3.5-5.5)
[2023-09-02 10:40] LABS: BASOPHILS ABSOLUTE AUTO 0.04 K/mm3 (0.00-0.23); BASOPHILS PERCENT AUTO 1 % (0-2); EOSINOPHILS PERCENT AUTO 1 % (0-6); Hematocrit 37.3 % (37.0-53.0); Hemoglobin 12.5 g/dL (13.5-17.5); IMMATURE GRAN ABSOLUTE AUTO 0.04 K/mm3 (0.00-0.10); IMMATURE GRAN PERCENT AUTO 1 % (0-1); LYMPHOCYTES ABSOLUTE AUTO 1.17 K/mm3 (0.84-5.20); LYMPHOCYTES PERCENT AUTO 14 % (21-46); MONOCYTES ABSOLUTE AUTO 1.16 K/mm3 (0.16-1.47); MONOCYTES PERCENT AUTO 14 % (4-13); Mean Corpuscular HGB 30.2 pg (26.0-34.0); Mean Corpuscular HGB Conc 33.5 g/dL (31.5-36.5); Mean Corpuscular Volume 90 fL (80-100); Mean Platelet Volume 9.7 fL (9.1-12.4); NEUTROPHILS ABSOLUTE AUTO 5.59 K/mm3 (1.96-9.15); NEUTROPHILS PERCENT AUTO 69 % (41-73); Platelet Count 336 K/mm3 (150-400); RDW Coefficient Variation 14.2 % (11.7-14.2); RDW Standard Deviation 46.6 fL (35.1-46.3); Red Blood Cell Count 4.14 M/mm3 (4.30-5.90)
[2023-09-02] MEDS ORDERED: Empagliflozin 10 MG TAB PO SCH (12:00)
[2023-09-02 12:46] VITALS: BP 113/83
--- NOTE | 2023-09-02 12:49 | NUR ---
Pt walked in the hallways with his , states that he is feeling good.vital signs are stable.
[2023-09-02 20:16] VITALS: BP 109/74
[2023-09-02 23:38] VITALS: BP 98/67
[2023-09-03] VITALS (7 sets, daily range): BP systolic 102–126; BP diastolic 65–80
--- NOTE | 2023-09-03 04:21 | NUR ---
SHIFT SUMMARY THIS RN ASSUMED CARE OF PATIENT AT 1900. PT A&O X4. ABLE TO MAKE NEEDS KNOWN. IND WITH ADL'S IN ROOM. SBP 90-100'S, MAP >65. ON RA WITH SPO2 >92%. SR 60-70'S. AFEBRILE. HEP GTT INFUSING PER EMAR. BED IN LOWEST POSITION AND CALL LIGHT WITHIN REACH. THIS RN WILL REPORT TO ONCOMING DAYSHIFT RN.
[2023-09-03 04:34] LABS: Bun/Creatinine Ratio 23.4 (12.0-20.0); Calcium, Blood 9.3 mg/dL (8.5-10.1); Creatinine, Blood 1.24 mg/dL (0.60-1.20); Potassium, Blood 4.2 mmol/L (3.5-5.5)
[2023-09-03] MEDS ORDERED: Dose Adjust by Pharmacy XX STA (04:43)
--- NOTE | 2023-09-03 18:10 | NUR ---
ASSUMED CARE OF PT AT 0700 THIS AM. COMPLETELY UNEVENTFUL DAY, PT HAS DENIED CHEST PAIN OR PRESSURE, PT HAS HAD NO COMPLAINTS, PT HAS BEEN AMBULATING IN HALLWAY WITH HIS . HEPARIN GTT CONTINUES AT 11U/KG/HR WITHOUT ANY INTERUPTIONS. PLAN FOR ANGIOGRAM TOMORROW, NPO AT [place], ORDER TO GIVE PLAVIX AND ASA AT 0630. PT IS ABLE TO MAKE NEEDS KNOWN, COOPERATIVE WITH CARE AND USES CALL LIGHT APPROPRIATELY. WILL CONTINUE TO MONITOR AND GIVE REPORT TO NOC SHIFT RN.
[2023-09-03] MEDS ORDERED: Docusate Sodium 100 MG Cap PO SCH (21:40)
[2023-09-04] VITALS (10 sets, daily range): BP systolic 101–124; BP diastolic 62–75
[2023-09-04 04:24] LABS: Bun/Creatinine Ratio 21.3 (12.0-20.0); Calcium, Blood 9.2 mg/dL (8.5-10.1); Creatinine, Blood 1.36 mg/dL (0.60-1.20); Potassium, Blood 4.3 mmol/L (3.5-5.5)
--- NOTE | 2023-09-04 04:38 | NUR ---
SHIFT SUMMARY PT A&Ox4, CALLS AND COMMUNCIATES NEEDS APPROPRIATELY. IND/SBA FOR IV POLE MANAGEMENT. BP STABLE, SINUS 80's, DENIES CP/PRESSURE. SpO2> 92% RA, DENIES SOB. NPO AT 0000. CONTINENT OF URINE AND BOWEL. HEPARIN gtt INFUSING AT 11units/hr PER PHARMACY. NO OTHER EVENTS, WILL REPORT TO ONCOMING RN.
[2023-09-04] MEDS ORDERED: NS 1,000 ML IV ONE ×2 (07:50→10:55)
[2023-09-04] MEDS ORDERED: NS 2,000 ML IV ONE (08:10)
[2023-09-04] MEDS ORDERED: Heparin Sodium 1000 Units/ML 10ML MDV ONE ×4 (08:12→13:03)
[2023-09-04] MEDS ORDERED: NS 250 ML IV ONE (08:12)
[2023-09-04] MEDS ORDERED: Nitroglycerin 2 MG/20 ML BTL ONE (08:13)
[2023-09-04] MEDS ORDERED: FentaNYL Citrate 50 MCG/ML 2 ML Injection ONE (08:45)
[2023-09-04] MEDS ORDERED: NS 500 ML IV ONE ×3 (10:19→12:20)
--- NOTE | 2023-09-04 18:07 | NUR ---
ASSUMED CARE OF PT AT 0700 THIS AM. PT TRANSPORTED TO ROLL MACHINE OPERATOR VIA BED APROX 0820. PT RETURNED TO PCU 17 AT [address] ST[address] X2 WITH R GROIN ANGIO SITE W PERCLOSE. PT WAS ABLE TO LAY FLAT FOR 4 HOURS PER MD ORDERS. OOB TO AMBULATE POST FLAT TIME WITHOUT COMPLICATIONS, GROIN SITE SOFT, NO BLEEDING OR HEMATOMA NOTED. HEPARIN DISCONTINUED PER DR MARTE, PT WILL START PO ELIQUIS TONIGHT. PT HAS HAD NO REPORTS OF CHEST PAIN OR PRESSURE T/O THE SHIFT, SEE DOCUMENTED VS, TELEMETRY RECORDS AND ASSESSMENT. NS INFUSING AT 75ML/HR X [address] PER ORDERS [address] KESSLER. NO NEEDS IDENTIFIED AT THIS TIME, PT IS ABLE TO USE CALL LIGHT FOR NEEDS. INDEPENDENT IN THE ROOM. VERBALIZES UNDERSTANDING TO CALL THE RN RIGHT AWAY IF GROIN SITE BECOMES PAINFUL, SWOLLEN OR STARTS BLEEDING.
--- NOTE | 2023-09-04 18:55 | NUR ---
ASSUMED CARE W/ PRIMARY RN AT 0700. PT HAS BEEN NPO SINCE MIDNIGHT FOR ANGIOGRAM TODAY. PT TAKEN TO FINANCE ADMIN AT 0820; RETURNED FROM FINANCE ADMIN TO [facility] AT 1350. RIGHT GROIN SITE ASSESSED. NO BLEEDING, SWELLING OR HEMATOMA NOTED. PT LAID FLAT FOR 4 HOURS. ANGIO SITE REMAINED WITHOUT BLEEDING, SWELLING, OR HEMATOMA. PT DENIES CHEST PAIN/PRESSURE. NO ISSUES OR PROBLEMS IDENTIFIED DURING SHIFT. PRIMARY RN TO REPORT TO NOC SHIFT RN.
[2023-09-04] MEDS ORDERED: Apixaban 5 MG Tab PO SCH (19:00)
[2023-09-04] MEDS ORDERED: Metoprolol Succinate 25 MG TABCR PO SCH (21:00)
[2023-09-05 00:15] VITALS: BP 102/65
[2023-09-05 03:11] VITALS: BP 96/63
[2023-09-05 03:34] LABS: Hematocrit 33.6 % (37.0-53.0); Hemoglobin 11.1 g/dL (13.5-17.5); Mean Corpuscular HGB 29.7 pg (26.0-34.0); Mean Corpuscular Volume 90 fL (80-100); Mean Platelet Volume 9.8 fL (9.1-12.4); Platelet Count 278 K/mm3 (150-400); RDW Coefficient Variation 14.3 % (11.7-14.2); RDW Standard Deviation 47.1 fL (35.1-46.3); Red Blood Cell Count 3.74 M/mm3 (4.30-5.90); White Blood Cell Count 6.86 K/mm3 (4.00-11.30)
[2023-09-05 03:49] LABS: Bun/Creatinine Ratio 19.5 (12.0-20.0); Calcium, Blood 8.7 mg/dL (8.5-10.1); Creatinine, Blood 1.18 mg/dL (0.60-1.20)
--- NOTE | 2023-09-05 04:45 | NUR ---
SHIFT SUMMARY THIS RN ASSUMED CARE OF PATIENT AT 1900. PT A&O X4. ABLE TO MAKE NEEDS KNOWN. IND WITH ADL'S. RT GROIN ANGIO SITE SOFT, MILDLY TENDER WITH PALPATION. SMALL DISCOLORATION NOTED LATERAL TO PUNCTURE, NO BLEEDING OR HEMATOMA NOTED. PPP. VSS. SBP 90-100'S, MAP >65. 1L OF NS INFUSED PER EMAR. PIV SALINE LOCKED. BED IN LOWEST POSITION AND CALL LIGHT WITHIN REACH. THIS RN WILL REPORT TO ONCOMING DAYSHIFT RN.
[2023-09-05 07:55] VITALS: BP 114/70
[2023-09-05] MEDS ORDERED: CLOP75 PO (09:41)
[2023-09-05] MEDS ORDERED: ASPI81CH PO (09:41)
[2023-09-05] MEDS ORDERED: JARDIANCE10 MG PO (09:41)
[2023-09-05] MEDS ORDERED: LOSA25 PO (09:42)
[2023-09-05] MEDS ORDERED: FURO40 PO (09:42)
[2023-09-05] MEDS ORDERED: METO25ER PO (09:42)
[2023-09-05] MEDS ORDERED: PANT40 PO (09:42)
[2023-09-05 11:00] VITALS: BP 120/78
--- NOTE | 2023-09-05 11:10 | NUR ---
DISCHARGE NOTE: EXTENSIVE DISCHARGE TEACHING PROVIDED TO PT AND HIS AT BEDSIDE INCLUDING VERBAL AND WRITTEN INFORMATION. DR KESSLER AT BEDSIDE WELL TO ANSWER QUESTIONS. PT'S IS VERY ANXIOUS ABOUT THE PT'S DISCHARGE AND SHE WAS PROVIDED WITH EDUCATION, EXPLAINATION AND INSTRUCTIONS ON PT'S CARE AND FOLLOW UP APPOINTMENTS. PT IS A RETIRED PHYSICIAN, HE IS COMFORTABLE WITH DISCHARGE, RECEPTIVE TO EDUCATION AND INSTRUCTIONS AND VERBALIZES UNDERSTANDING W/O FURTHER QUESTIONS. PRESCRIPTIONS FAXED TO [facility] PER PT REQUEST. IV X 2 REMOVED, SEE DOCUMENTATION. ALL BELONGINGS SENT HOME WITH PT. PT IS ABLE TO AMBULATE W/O ASSISTANCE, GAIT STEADY. NO FURTHER DISCHARGE NEEDS NOTED AT THIS TIME. PT DISCHARGED IN TO THE CARE OF HIS .
[2023-09-05] MEDS ORDERED: Losartan Potassium 25 MG Tab PO SCH (21:00)
== END 2023-09-05 11:26 | disposition home or self-care (01) | DRG 321 ==
LOC: ER 14:10 → PCU 17:42
PROVIDERS: Internal Medicine; Internal Medicine Cardiovascular Disease; Student in an Organized Health Care Education/Training Program; ADMIT Internal Medicine
PROC: B2111ZZ Fluoroscopy of Multiple Coronary Arteries using Low Osmolar Contrast (ICD-10-PCS; 2023-08-25)
PROC: 4A023N7 Measurement of Cardiac Sampling and Pressure, Left Heart, Percutaneous Approach (ICD-10-PCS; 2023-08-25)
PROC: 027034Z Dilation of Coronary Artery, One Artery with Drug-eluting Intraluminal Device, Percutaneous Approach (ICD-10-PCS; principal; 2023-08-30)
PROC: 4A023N7 Measurement of Cardiac Sampling and Pressure, Left Heart, Percutaneous Approach (ICD-10-PCS; 2023-08-30)
PROC: B2111ZZ Fluoroscopy of Multiple Coronary Arteries using Low Osmolar Contrast (ICD-10-PCS; 2023-08-30)
PROC: 027034Z Dilation of Coronary Artery, One Artery with Drug-eluting Intraluminal Device, Percutaneous Approach (ICD-10-PCS; 2023-09-01)
PROC: 4A023N7 Measurement of Cardiac Sampling and Pressure, Left Heart, Percutaneous Approach (ICD-10-PCS; 2023-09-01)
PROC: B2111ZZ Fluoroscopy of Multiple Coronary Arteries using Low Osmolar Contrast (ICD-10-PCS; 2023-09-01)
PROC: 027034Z Dilation of Coronary Artery, One Artery with Drug-eluting Intraluminal Device, Percutaneous Approach (ICD-10-PCS; 2023-09-04)
PROC: 02C03Z7 Extirpation of Matter from Coronary Artery, One Artery, Orbital Atherectomy Technique, Percutaneous Approach (ICD-10-PCS; 2023-09-04)
PROC: B2111ZZ Fluoroscopy of Multiple Coronary Arteries using Low Osmolar Contrast (ICD-10-PCS; 2023-09-04)
PROC: 4A023N7 Measurement of Cardiac Sampling and Pressure, Left Heart, Percutaneous Approach (ICD-10-PCS; 2023-09-04)
DX: I21.4 Non-ST elevation (NSTEMI) myocardial infarction (principal); I50.23 Acute on chronic systolic (congestive) heart failure; I48.20 Chronic atrial fibrillation, unspecified; I13.0 Hypertensive heart and chronic kidney disease with heart failure and stage 1 through stage 4 chronic kidney disease, or unspecified chronic kidney disease; E87.1 Hypo-osmolality and hyponatremia; N18.30 Chronic kidney disease, stage 3 unspecified; J43.9 Emphysema, unspecified; E78.5 Hyperlipidemia, unspecified; D63.1 Anemia in chronic kidney disease; I25.5 Ischemic cardiomyopathy; I08.3 Combined rheumatic disorders of mitral, aortic and tricuspid valves; I77.819 Aortic ectasia, unspecified site; I25.10 Atherosclerotic heart disease of native coronary artery without angina pectoris; Z87.891 Personal history of nicotine dependence; Z79.01 Long term (current) use of anticoagulants
CPT/HCPCS: 0241U; 36415; 71046; 76937; 80048; 80053; 80061; 80069; 83605; 83735; 83880; 84100; 84145; 84443; 84484; 85014; 85018; 85025; 85027; 85049; 85347; 85520; 85610; 85611; 85730; 87040; 87077; 92920; 93005; 93010; 93306; 93454; 94640; 94664; 94760; 94762; 96365; 96366; 96368; 99152; 99153; 99285-25; A9270; C1724; C1725; C1760; C1761; C1769; C1874; C1887; C1894; C9600; C9602; J0456; J0461; J0696; J1644; J1940; J2250; J2371; J3010; J7030; J7040; J7050; Q9967